=== PATIENT | female | born 1955 | race Two or more races ===

== ENCOUNTER 2023-01-26 13:27 | Outpatient (CLI) | payer OTHER | END 2023-01-26 13:31 | disposition home or self-care (01) | LOC: RAD 13:27 | PROVIDERS: ATTEND Neurological Surgery | DX: M54.2 Cervicalgia (principal); G89.4 Chronic pain syndrome; M48.02 Spinal stenosis, cervical region; M47.22 Other spondylosis with radiculopathy, cervical region; M13.0 Polyarthritis, unspecified; M43.8X9 Other specified deforming dorsopathies, site unspecified ==

== ENCOUNTER 2023-01-31 07:12 | Outpatient (CLI) | payer OTHER | END 2023-01-31 07:19 | disposition home or self-care (01) | LOC: NUCLEAR 07:12 | PROVIDERS: ATTEND Neurological Surgery | DX: M54.2 Cervicalgia (principal); G89.4 Chronic pain syndrome; M48.02 Spinal stenosis, cervical region; M47.22 Other spondylosis with radiculopathy, cervical region; M13.0 Polyarthritis, unspecified; M43.8X9 Other specified deforming dorsopathies, site unspecified ==

== ENCOUNTER 2023-02-10 07:40 | Outpatient (CLI) | payer OTHER | END 2023-02-10 07:41 | disposition home or self-care (01) | LOC: NUCLEAR 07:40 | PROVIDERS: ATTEND Internal Medicine | DX: E83.52 Hypercalcemia (principal) ==